=== PATIENT | female | born 1955 | race African-American/Black ===

== ENCOUNTER → 2023-10-29 11:04 | Outpatient (REF) | payer MEDICARE, SELFPAY | LOC: HWRAD 11:04 | PROVIDERS: ATTENDING PHYSICIAN Family Medicine | DX: M81.0 Age-related osteoporosis without current pathological fracture (principal); Z12.31 Encounter for screening mammogram for malignant neoplasm of breast | CPT/HCPCS: 77063; 77067; 77080 ==

== ENCOUNTER → 2024-01-28 15:10 | Outpatient (REF) | payer MEDICARE, SELFPAY | LOC: PAVMRI 15:10 | PROVIDERS: ATTENDING PHYSICIAN Specialist; FAMILY PHYSICIAN Family Medicine | DX: M54.16 Radiculopathy, lumbar region (principal) | CPT/HCPCS: 72148 ==

== ENCOUNTER → 2024-11-10 09:17 | Outpatient (REF) | payer MEDICARE, SELFPAY | LOC: HWRAD 09:17 | PROVIDERS: ATTENDING PHYSICIAN Obstetrics & Gynecology Gynecology; FAMILY PHYSICIAN Student in an Organized Health Care Education/Training Program; REFERRING PHYSICIAN Pain Medicine Interventional Pain Medicine | DX: M81.0 Age-related osteoporosis without current pathological fracture (principal); Z12.31 Encounter for screening mammogram for malignant neoplasm of breast; Z01.818 Encounter for other preprocedural examination | CPT/HCPCS: 77063; 77067; 93005 ==

== ENCOUNTER → 2025-02-14 18:48 | Outpatient (REF) | payer MEDICARE, SELFPAY | LOC: PAVMRI 18:48 | PROVIDERS: ATTENDING PHYSICIAN Pain Medicine Interventional Pain Medicine; FAMILY PHYSICIAN Student in an Organized Health Care Education/Training Program | DX: M53.3 Sacrococcygeal disorders, not elsewhere classified (principal); M25.561 Pain in right knee | CPT/HCPCS: 72195; 73721 ==

== ENCOUNTER 2025-02-28 11:37 | Outpatient (RCR) | payer MEDICARE, SELFPAY ==
[2025-02-28 11:35] VITALS: BP 137/71
[2025-02-28] MEDS: PROLIA 60 MG SC (11:47)
== END 2025-03-02 09:22 | disposition home or self-care (01) ==
LOC: OID 11:37
PROVIDERS: ATTENDING PHYSICIAN Nurse Practitioner Family; FAMILY PHYSICIAN Student in an Organized Health Care Education/Training Program
DX: M81.0 Age-related osteoporosis without current pathological fracture (principal)
CPT/HCPCS: 96372; J0897

== ENCOUNTER 2025-03-05 06:25 | Day surgery (SDC) | payer MEDICARE, SELFPAY | END 2025-03-05 11:16 | disposition home or self-care (01) | LOC: GI 06:25 | PROVIDERS: ATTENDING PHYSICIAN Internal Medicine Gastroenterology | DX: R10.84 Generalized abdominal pain (principal); K22.89 Other specified disease of esophagus; K29.70 Gastritis, unspecified, without bleeding; K31.7 Polyp of stomach and duodenum; K20.0 Eosinophilic esophagitis | CPT/HCPCS: 43239; 88305; 88342 ==